=== PATIENT | female | born 1985 | race African-American/Black ===

== ENCOUNTER 2022-12-10 12:19 | Outpatient (CLI) | payer OTHER, BC | END 2022-12-10 12:20 | disposition home or self-care (01) | LOC: CSHRAD 12:19 | PROVIDERS: ATTEND Registered Nurse | DX: M25.561 Pain in right knee (principal); M25.461 Effusion, right knee ==

== ENCOUNTER 2024-05-05 08:28 | Outpatient (CLI) | payer OTHER | END 2024-05-05 08:29 | disposition home or self-care (01) | LOC: CSHSLEEP 08:28 | PROVIDERS: ATTEND Nurse Practitioner Family | DX: G47.9 Sleep disorder, unspecified (principal); R53.83 Other fatigue; R09.89 Other specified symptoms and signs involving the circulatory and respiratory systems; R51.9 Headache, unspecified; R06.83 Snoring; G47.33 Obstructive sleep apnea (adult) (pediatric) | CPT/HCPCS: 95800 ==